=== PATIENT | female | born 1995 | race Caucasian/White ===

== ENCOUNTER 2017-11-01 14:39 | Emergency (ER) | payer MEDICAID, SELFPAY ==
[2017-11-01 15:00] VITALS: BP 130/81; PULSE 103; RESP 22; TEMP 36.8; O2SAT 97; BMI 45.8
--- NOTE | 2017-11-01 15:07 | HMH.EDUTC ---
[facility] [place] Impression: test negative Disposition: Home, Self-Care Condition on Discharge: Good Additional Instructions: Follow up with family doctor Return if needed Keep record of menstrual cycle to help define period of time that you may or may not become Referrals: Sandeep Amador MD [Primary Care Provider] - Time of Disposition: 16:49 Medical Decision Making - Medical Records Medical records reviewed: Yes: I reviewed the patient's medical records. Vital Signs: 11/01/17 15:00 Temperature 98.2 F Temperature Source Temporal Artery Scan Pulse Rate [Radial] 103 H Respiratory Rate 22 Blood Pressure [Right Arm] 130/81 Blood Pressure Mean [Right Arm] 97 Blood Pressure Source [Right Arm] Automatic Cuff Blood Pressure Position [Right Arm] Sitting 02 Sat by Pulse Oximetry 97 Oxygen Delivery Method Room Air - Lab Data Lab Results 11/01/17 15:44: Serum HCG, Qual Negative - Anderson Inquiry Pt receiving controlled substance: No Anderson was queried for this patient: No - Reevaluation(s) Time: 15:59 (awaiting lab work will monitor) Time: 16:47 (Lab results back Patient educated and advised of finding) [facility] [place] - General Stated complaint: test Mode of Arrival: Ambulatory Source of Information: Patient Limitations: No Limitations Description of Symptoms (Recalled from Triage Doc. by RN): PT WANTS A TEST HEENT Symptoms (Recalled from RN notes): No Resp Symptoms (Recalled from RN notes): No Skin Symptoms (Recalled from RN notes): No MS Symptoms (Recalled from RN notes): No Functional Status (Recalled from RN notes): NA - History of Present Illness Provider Complaint: Patient state that she has not been using control and she thinks she may be State that her last period was the first week in Dec and she has been having pregnacy like symptoms such as cravings, tenderness in breast and nausea - Related Data Allergies Allergy/AdvReac Type Severity Reaction Status Date / Time azithromycin Allergy Unknown - Unverified 09/30/17 15:00 - Worker's Comp Is this a Worker's Comp case?: No [facility] History I have reviewed the patient's past medical history: Yes Medical History: Denies:: Cancer, Diabetes Mellitus Type 1, Diabetes Mellitus Type 2, MRSA Amputation: No Fractures: No - *Social History Alcohol Intake: never - Psychiatric History Expresses thoughts of harming self/others: None Suicide Plan Description: No Plan ROS Obtained: Yes All systems reviewed & no additional complaints Physical Exam - General General appearance: alert, in no apparent distress - Respiratory Respiratory exam: Present: normal lung sounds bilaterally. Absent: respiratory distress - Cardiovascular Cardiovascular exam: Present: normal rhythm, tachycardia. Absent: JVD - Neurological Exam Neurological exam: Present: alert, oriented X3
--- NOTE | 2017-11-01 15:12 | ED_ITS ---
[facility] – [place] Clinical Impression: test negative Disposition: Home, Self-Care Condition on Discharge: Good Additional Instructions: Follow up with family doctor Return if needed Keep record of menstrual cycle to help define period of time that you may or may not become Referrals: Sandeep Amador MD [Primary Care Provider] - Time of Disposition: 16:49 Medical Decision Making - Medical Records Medical records reviewed: Yes: I reviewed the patient's medical records. Vital Signs: 11/01/17 15:00 Temperature 98.2 F Temperature Source Temporal Artery Scan Pulse Rate [Radial] 103 H Respiratory Rate 22 Blood Pressure [Right Arm] 130/81 Blood Pressure Mean [Right Arm] 97 Blood Pressure Source [Right Arm] Automatic Cuff Blood Pressure Position [Right Arm] Sitting 02 Sat by Pulse Oximetry 97 Oxygen Delivery Method Room Air - Lab Data Lab Results 11/01/17 15:44: Serum HCG, Qual Negative - Anderson Inquiry Pt receiving controlled substance: No Anderson was queried for this patient: No - Reevaluation(s) Time: 15:59 (awaiting lab work will monitor) Time: 16:47 (Lab results back Patient educated and advised of finding) [facility] [place] HPI - General Stated complaint: test Mode of Arrival: Ambulatory Source of Information: Patient Limitations: No Limitations Description of Symptoms (Recalled from Triage Doc. by RN): PT WANTS A TEST HEENT Symptoms (Recalled from RN notes): No Resp Symptoms (Recalled from RN notes): No Skin Symptoms (Recalled from RN notes): No MS Symptoms (Recalled from RN notes): No Functional Status (Recalled from RN notes): NA - History of Present Illness Provider Complaint: Patient state that she has not been using control and she thinks she may be State that her last period was the first week in Dec and she has been having pregnacy like symptoms such as cravings, tenderness in breast and nausea - Related Data Allergies Allergy/AdvReac Type Severity Reaction Status Date / Time azithromycin Allergy Unknown - Unverified 09/30/17 15:00 - Worker's Comp Is this a Worker's Comp case?: No [facility] History I have reviewed the patient's past medical history: Yes Medical History: Denies:: Cancer, Diabetes Mellitus Type 1, Diabetes Mellitus Type 2, MRSA Amputation: No Fractures: No - *Social History Alcohol Intake: never - Psychiatric History Expresses thoughts of harming self/others: None Suicide Plan Description: No Plan ROS Obtained: Yes All systems reviewed & no additional complaints Physical Exam - General General appearance: alert, in no apparent distress - Respiratory Respiratory exam: Present: normal lung sounds bilaterally. Absent: respiratory distress - Cardiovascular Cardiovascular exam: Present: normal rhythm, tachycardia. Absent: JVD - Neurological Exam Neurological exam: Present: alert, oriented X3
[2017-11-01 16:35] LABS: HCG Qualitative, Serum Negative (Negative)
[2017-11-01 16:49] VITALS: BP 108/60; PULSE 65; RESP 14; TEMP 36.7; O2SAT 98
== END 2017-11-01 16:50 | disposition home or self-care (01) ==
PROVIDERS: Emergency Provider Nurse Practitioner; PCP Family Medicine
DX: N91.2 Amenorrhea, unspecified (principal); Z32.02 Encounter for pregnancy test, result negative
CPT/HCPCS: 36415; 84703; 99202

== ENCOUNTER → 2018-04-21 11:21 | Outpatient (CLI) | payer MEDICAID, SELFPAY ==
[2018-04-21 12:55] LABS: Free Thyroxine Index 2.4 ug/dL (5.93-13.13); T4 (Thyroxine) 7.4 ug/dl (4.7-13.3); Thyroid Stimulating Hormone 2.27 uIU/ml (0.358-3.740); Triiodothryronine (T3) Uptake 32 % (31-39)
== END ==
PROVIDERS: Visit Provider Nurse Practitioner Obstetrics & Gynecology
DX: R53.82 Chronic fatigue, unspecified (principal); N92.6 Irregular menstruation, unspecified
CPT/HCPCS: 36415; 84436; 84443; 84479

== ENCOUNTER 2020-05-26 13:49 | Emergency (ER) | payer MEDICAID, SELFPAY ==
--- NOTE | 2020-05-26 14:21 | HMH.EDUTC ---
[facility] [place]: Nausea Disposition: Home, Self-Care Condition on Discharge: Good Instructions: DI for Nausea -- Adult Additional Instructions: You need to follow up with a primary care physician. We will give you a list of providers that are taking new patients. Take the zofran as directed for nausea. Avoid foods and activities that cause your nausea until you have a more clear etiology of what's causing it. GO TO THE ER FOR ANY WORSENING SYMPTOMS OR CONCERNS Prescriptions: Ondansetron [Zofran 4mg ODT] 4 mg PO Q8HP PRN #20 tab PRN Reason: Nausea Transmission Status: Received by [employer] #[id number] Referrals: PCP,No [Primary Care Provider] - Forms: Work/School Release Time of Disposition: 15:54 Medical Decision Making - Medical Records Medical records reviewed: No: I reviewed the patient's medical records. - Anderson Inquiry Pt receiving controlled substance: No Vital Signs: 05/26/20 14:35 05/26/20 15:57 Temperature 98.0 F 98.0 F Temperature Source Oral Pulse Rate 90 Pulse Rate [Left Brachial] 90 Respiratory Rate 20 20 Blood Pressure 144/98 H Blood Pressure [Left Arm] 144/98 H Blood Pressure Mean [Left Arm] 113 Blood Pressure Source [Left Arm] Automatic Cuff Blood Pressure Position [Left Arm] Sitting 02 Sat by Pulse Oximetry 98 Oxygen Delivery Method Room Air - Lab Data Lab results reviewed: Yes: I reviewed the patient's lab results. Lab Results 05/26/20 15:05: WBC 7.6, RBC 4.81, Hgb 15.2, Hct 44.1, MCV 91.6, MCH 31.6 H, MCHC 34.5, RDW 12.7, Plt Count 254, MPV 8.6, Neut % (Auto) 65.4, Lymph % (Auto) 26.4, Faulk % (Auto) 4.0, Eos % (Auto) 3.9, Baso % (Auto) 0.3, Neut # (Auto) 5.0, Lymph # (Auto) 2.0, Faulk # (Auto) 0.3, Eos # (Auto) 0.3, Baso # (Auto) 0.0, ESR 13 05/26/20 15:05: Sodium 140, Potassium 4.5, Chloride 105, Carbon Dioxide 27, Anion Gap 12.5, BUN 8, Creatinine 0.80, Estimated Creat Clear 160, Estimated GFR 87, Est GFR ( Amer) 105, Glucose 96, Calcium 9.6, Total Bilirubin 0.5, AST 25, ALT 37, Alkaline Phosphatase 46, Total Protein 7.5, Albumin 4.4, Globulin 3.1, Albumin/Globulin Ratio 1.4, TSH 0.79 05/26/20 15:05: Free T4 1.05 Result diagrams: 05/26/20 15:05 05/26/20 15:05 [facility] [place] General Stated complaint: symptoms of tyroid Time Seen by Provider: 05/26/20 14:21 - History of Present Illness Provider Complaint: She states that she has been feeling fatigued more than normal for the past 2 weeks or so. In the past she had hyperactive thyroid that made her feel this same way. This occured about 10 years ago. Since then she states that her thyroid regulated its self back out so she no longer takes thyroid medication. - Related Data Previous Rx's Medication Instructions Recorded Ondansetron [Zofran 4mg ODT] 4 mg PO Q8HP PRN #20 tab 05/26/20 Allergies Allergy/AdvReac Type Severity Reaction Status Date / Time azithromycin Allergy Unknown - Verified 06/04/18 10:30 [facility] History - Hepatitis A Screen Attestation statement:: This patient has been screened for Hepatitis A risk factors. I have reviewed the patient's past medical history: Yes Medical History: Reports:: Depression Denies:: Cancer, Diabetes Mellitus Type 1, Diabetes Mellitus Type 2, MRSA Other Medical History: Reports: Thyroid Disease Other Surgeries: Yes: No Previous Surgery Amputation: No Fractures: No - Social History Smoking Status: Unknown if ever smoked Alcohol Intake: never Substance Use Type: denies use - Psychiatric History Pschychiatric History:: Reports:: Depression Family Hx:: Asthma, Diabetes, Coronary Artery Disease, Stroke, Cancer Comment: Mother overdose,diabetes. Father-Alive. Siblings-Alive asthma ROS Obtained: Yes All systems reviewed & no additional complaints - Constitutional Constitutional: Denies chills, Denies fever(s) - Eyes Eyes: Denies eye discharge - ENT Ears, Nose, Mouth, and Thr
[2020-05-26 14:35] VITALS: BP 144/98; PULSE 90; RESP 20; TEMP 36.7; O2SAT 98; BMI 36.0
[2020-05-26 15:11] LABS: Basophils % 0.3 % (0.1-2.0); Eosinophils # 0.3 K/mm3 (0.0-0.4); Eosinophils % 3.9 % (0.1-12.0); Hematocrit 44.1 % (37.0-47.0); Hemoglobin 15.2 g/dL (12.2-16.2); Lymphocytes % 26.4 % (10-50); Mean Corpuscular HGB Conc 34.5 g/dL (31.8-35.4); Mean Corpuscular Hemoglobin 31.6 pg (27.0-31.2); Mean Corpuscular Volume 91.6 fl (81-99); Mean Platelet Volume 8.6 fl (7.4-10.4); Monocytes # 0.3 K/mm3 (0.1-1.0); Neutrophils % 65.4 % (37.0-80.0); Platelet Count 254 K/mm3 (142-424); Red Blood Count 4.81 M/mm3 (4.20-5.40); Red Cell Distribution Width 12.7 % (11.5-17.5); White Blood Count 7.6 K/mm3 (4.8-10.8)
[2020-05-26 15:17] LABS: Chloride 105 mmol/L (98-107); Sodium 140 mmol/L (136-145)
[2020-05-26 15:18] LABS: Potassium 4.5 mmoL/L (3.5-5.1)
[2020-05-26 15:20] LABS: Alanine Aminotransferase 37 U/L (12-78); Albumin Level 4.4 g/dl (3.5-5.0); Albumin/Globulin Ratio 1.4 (1.1-1.8); Alkaline Phosphatase 46 U/L (38-126); Anion Gap 12.5 mEq/L (5-15); Aspartate Amino Transferase 25 U/L (14-36); Bilirubin,Total 0.5 mg/dl (0.2-1.3); Blood Urea Nitrogen 8 mg/dl (7-17); Carbon Dioxide 27 mmol/L (22.0-30.0); Creatinine Clearance Estimated 160 mL/min (50-200); Estimated Glomerular Filt Rate 87 ml/min (>60); GFR (African American) 105 ML/MIN (>60); Globulin 3.1 g/dL (1.3-3.2); Total Protein,Serum 7.5 g/dl (6.3-8.2)
[2020-05-26 15:21] LABS: Calcium 9.6 mg/dl (8.4-10.2); Glucose 96 mg/dl (74-100)
[2020-05-26 15:33] LABS: Erythrocyte Sedimentation Rate 13 mm/hr (0-20)
[2020-05-26 15:42] LABS: Free T4 (Free Thyroxine) 1.05 ng/dl (0.78-2.19)
[2020-05-26 15:51] LABS: Thyroid Stimulating Hormone 0.79 uIU/mL (0.465-4.68)
[2020-05-26 15:57] VITALS: BP 144/98; PULSE 90; RESP 20; TEMP 36.7; O2SAT 98
== END 2020-05-26 16:05 | disposition home or self-care (01) ==
PROVIDERS: Emergency Provider Nurse Practitioner Family
DX: R11.0 Nausea (principal); R53.83 Other fatigue
CPT/HCPCS: 80053; 84439; 84443; 85025; 85651; 99201

== ENCOUNTER → 2020-06-12 09:50 | Outpatient (CLI) | payer MEDICAID, SELFPAY ==
--- NOTE | 2020-06-12 10:03 | US_ITS ---
PROCEDURE: US ABDOMEN LIMITED CLINICAL INDICATION: RUQ PAIN COMPARISON: No exams were available for comparison FINDINGS: PANCREAS: Unremarkable. No obvious mass or abnormal fluid collection. No ductal dilatation LIVER: No focal liver lesions demonstrated. Homogeneous echogenicity. No intrahepatic biliary ductal dilatation evident. There is appropriate direction of blood flow within a non dilated portal vein RIGHT KIDNEY: Unremarkable. Normal size and echogenicity. No hydronephrosis GALLBLADDER: No gallstones, gallbladder wall thickening, pericholecystic fluid, or biliary dilatation. IMPRESSION: Unremarkable limited abdominal ultrasound as detailed above disc Dictated by: Jose Keen MD 06/12/2020 12:09 Jose Keen MD in [place] 06/12/2020 12:09
== END ==
PROVIDERS: PCP Family Medicine; Visit Provider Family Medicine
DX: R10.11 Right upper quadrant pain (principal); R11.0 Nausea
CPT/HCPCS: 76705

== ENCOUNTER 2020-12-01 16:00 | Outpatient (RCR) | payer MEDICAID, SELFPAY | END 2020-12-01 16:05 | disposition home or self-care (01) | LOC: PT 16:00 | PROVIDERS: Visit Provider Family Medicine | DX: S39.012A Strain of muscle, fascia and tendon of lower back, initial encounter (principal) | CPT/HCPCS: 97010; 97014; 97033; 97110; 97140; 97163; G0283 ==

== ENCOUNTER → 2022-09-23 13:59 | Outpatient (CLI) | payer MEDICAID, SELFPAY ==
--- NOTE | 2022-09-23 14:04 | CT_ITS ---
FINAL REPORT TECHNIQUE: Axial imaging of the orbits was obtained with without contrast. Reformatted images were also obtained reviewed. This study was performed with techniques to keep radiation doses as low as reasonably achievable (ALARA). Individualized dose reduction techniques using automated exposure control or adjustment of mA and/or kV according to the patient's size were employed. CLINICAL HISTORY: vision loss, papilledema FINDINGS: There is mild mucosal thickening of the right maxillary sinuses. Visualized sinuses are otherwise clear. The globes are intact. No orbital mass is seen. There is no abnormal contrast enhancement. The optic nerves are intact. There is no acute osseous abnormality. There is no mass or inflammatory process seen. IMPRESSION: Unremarkable exam. Reviewed, Interpreted and Dictated by Neil Hastings III, MD Transcribed by Raya Wiseman Authenticated and [facility]
[2022-09-23 14:32] LABS: Basophils # 0.1 K/mm3 (0-0.2); Basophils % 0.7 % (0.1-2.0); Eosinophils # 0.3 K/mm3 (0.0-0.4); Hematocrit 43.2 % (37.0-47.0); Hemoglobin 14.4 g/dL (12.2-16.2); Lymphocytes # 2.4 K/mm3 (0.7-4.5); Mean Corpuscular HGB Conc 33.3 g/dL (31.8-35.4); Mean Corpuscular Hemoglobin 29.6 pg (27.0-31.2); Mean Platelet Volume 7.9 fl (7.4-10.4); Monocytes # 0.3 K/mm3 (0.1-1.0); Monocytes % 3.8 % (1.7-9.3); Neutrophils # 5.9 K/mm3 (1.8-7.8); Neutrophils % 65.5 % (37.0-80.0); Platelet Count 279 K/mm3 (142-424); Red Blood Count 4.86 M/mm3 (4.20-5.40); Red Cell Distribution Width 13.8 % (11.5-17.5); White Blood Count 8.9 K/mm3 (4.8-10.8)
[2022-09-23 14:37] LABS: Chloride 106 mmol/L (98-107); Potassium 3.7 mmoL/L (3.5-5.1); Sodium 140 mmol/L (136-145)
[2022-09-23 14:40] LABS: Alanine Aminotransferase 26 U/L (12-78); Albumin Level 4.5 g/dl (3.5-5.0); Albumin/Globulin Ratio 1.5 (1.1-1.8); Alkaline Phosphatase 72 U/L (38-126); Anion Gap 12.7 mEq/L (5-15); Aspartate Amino Transferase 28 U/L (14-36); Bilirubin,Total 0.4 mg/dl (0.2-1.3); Blood Urea Nitrogen 19 mg/dl (7-17); Carbon Dioxide 25 mmol/L (22.0-30.0); Estimated Glomerular Filt Rate 53 ml/min (>60); GFR (African American) 65 ML/MIN (>60); Globulin 3.1 g/dL (1.3-3.2); Glucose 92 mg/dl (74-100); Total Protein,Serum 7.6 g/dl (6.3-8.2)
[2022-09-23 14:52] LABS: C-Reactive Protein 15.5 mg/L (0-4)
[2022-09-23 15:12] LABS: Thyroid Stimulating Hormone 2.23 uIU/mL (0.465-4.68)
[2022-09-23 15:23] LABS: Erythrocyte Sedimentation Rate 17 mm/hr (0-20)
[2022-09-23 16:32] LABS: Vitamin B12 639 pg/mL (239-931)
[2022-09-23 16:40] LABS: Folate 8.48 ng/mL
[2022-09-25 12:38] LABS: Rapid Plasma Reagin Ab Titer Non Reactive (NonRea<1:1)
[2022-10-05 23:23] LABS: Antinuclear Antibodies (ANA) Positive
== END ==
PROVIDERS: PCP Family Medicine; Visit Provider Nurse Practitioner Family
DX: H53.462 Homonymous bilateral field defects, left side (principal); H47.10 Unspecified papilledema; G93.2 Benign intracranial hypertension; R06.83 Snoring; R06.89 Other abnormalities of breathing; Z68.42 Body mass index [BMI] 45.0-49.9, adult
CPT/HCPCS: 36415; 70482; 80053; 82607; 82746; 84443; 85025; 85651; 86038; 86140; 86592; Q9967

== ENCOUNTER → 2022-10-07 08:39 | Outpatient (CLI) | payer MEDICAID, SELFPAY ==
[2022-10-07 10:23] LABS: Chloride 103 mmol/L (98-107); Potassium 4.6 mmoL/L (3.5-5.1); Sodium 139 mmol/L (136-145)
[2022-10-07 10:26] LABS: Anion Gap 12.6 mEq/L (5-15); Blood Urea Nitrogen 16 mg/dl (7-17); Carbon Dioxide 28 mmol/L (22.0-30.0); Estimated Glomerular Filt Rate 85 ml/min (>60); GFR (African American) 103 ML/MIN (>60); Glucose 89 mg/dl (74-100)
== END ==
PROVIDERS: PCP Family Medicine; Visit Provider Nurse Practitioner Family
DX: N28.9 Disorder of kidney and ureter, unspecified (principal)
CPT/HCPCS: 36415; 80048

== ENCOUNTER → 2022-10-09 14:15 | Outpatient (CLI) | payer MEDICAID, SELFPAY | PROVIDERS: PCP Family Medicine; Visit Provider Nurse Practitioner Family | DX: R06.81 Apnea, not elsewhere classified (principal); R06.83 Snoring; R06.89 Other abnormalities of breathing; G93.2 Benign intracranial hypertension | CPT/HCPCS: 95806 ==

== ENCOUNTER → 2022-10-31 13:56 | Outpatient (CLI) | payer MEDICAID, SELFPAY ==
[2022-11-04 18:08] LABS: Anti-Centromere B Antibodies <0.2 AI (0.0-0.9); Anti-DNA (DS) Ab Qn 2 IU/mL (0-9); Anti-Jo-1 <0.2 AI (0.0-0.9); Anti-Smith Antibody <0.2 AI (0.0-0.9); Antichromatin Antibodies 3.4 AI (0.0-0.9); Antiscleroderma-70 Antibodies <0.2 AI (0.0-0.9); RNP Antibodies <0.2 AI (0.0-0.9); Sjogren's Anti-SS-A 0.6 AI (0.0-0.9); Sjogren's Anti-SS-B <0.2 AI (0.0-0.9)
[2022-11-07 02:49] LABS: Antinuclear Antibodies, IFA POSITIVE
== END ==
PROVIDERS: PCP Family Medicine; Visit Provider Nurse Practitioner Family
DX: H47.10 Unspecified papilledema (principal); R76.8 Other specified abnormal immunological findings in serum
CPT/HCPCS: 36415; 86038; 86225; 86235

== ENCOUNTER → 2022-11-28 12:17 | Outpatient (CLI) | payer MEDICAID, SELFPAY ==
--- NOTE | 2022-11-28 | ECG_ITS ---
APPROVED REPORT Exam: Resting ECG HR:85 bpm ECG Measurements Heart Rate [address] 151 P 46 QRSd 81 QRS 59 QT 341 T 25 QTc 383 Conclusion SINUS RHYTHM LOW QRS VOLTAGE IN PRECORDIAL LEADS [QRS DEFLECTION < 1.0 mV IN CHEST LEADS] BORDERLINE ECG UNCONFIRMED REPORT Electronically signed by : Sandeep Dow MD 11/29/2022 08:57:58
--- NOTE | 2022-11-28 12:44 | XR_ITS ---
FINAL REPORT CLINICAL HISTORY: OBESITY COMPARISON: none FINDINGS: PA and lateral views of the chest were obtained. There is a tube coursing along the right neck and right upper chest favored to be [employer] shunt tubing. There is no prior exam for comparison. The cardiac and mediastinal silhouettes are within normal limits. The lungs are clear. There is no pleural effusion or pneumothorax. No acute osseous abnormality is identified. IMPRESSION: No radiographic evidence of acute cardiac or pulmonary disease. Reviewed, Interpreted and Dictated by Karol Jackson MD Transcribed by Nerissa Alanis Authenticated and [facility]
[2022-11-28 12:50] LABS: Basophils # 0.1 K/mm3 (0-0.2); Basophils % 0.9 % (0.1-2.0); Eosinophils # 0.2 K/mm3 (0.0-0.4); Eosinophils % 2.2 % (0.1-12.0); Hematocrit 41.5 % (37.0-47.0); Lymphocytes # 2.2 K/mm3 (0.7-4.5); Lymphocytes % 30.3 % (10-50); Mean Corpuscular HGB Conc 33.8 g/dL (31.8-35.4); Mean Corpuscular Hemoglobin 30.1 pg (27.0-31.2); Mean Corpuscular Volume 89.1 fl (81-99); Mean Platelet Volume 8.3 fl (7.4-10.4); Monocytes # 0.3 K/mm3 (0.1-1.0); Monocytes % 4.6 % (1.7-9.3); Neutrophils # 4.5 K/mm3 (1.8-7.8); Neutrophils % 61.9 % (37.0-80.0); Platelet Count 260 K/mm3 (142-424); Red Blood Count 4.66 M/mm3 (4.20-5.40); Red Cell Distribution Width 13.8 % (11.5-17.5); White Blood Count 7.2 K/mm3 (4.8-10.8)
[2022-11-28 13:13] LABS: Chloride 106 mmol/L (98-107); Potassium 4.5 mmoL/L (3.5-5.1); Sodium 140 mmol/L (136-145)
[2022-11-28 13:16] LABS: Alanine Aminotransferase 29 U/L (12-78); Albumin Level 4.6 g/dl (3.5-5.0); Albumin/Globulin Ratio 1.8 (1.1-1.8); Alkaline Phosphatase 58 U/L (38-126); Anion Gap 11.5 mEq/L (5-15); Aspartate Amino Transferase 28 U/L (14-36); Bilirubin,Total 0.7 mg/dl (0.2-1.3); Blood Urea Nitrogen 15 mg/dl (7-17); Carbon Dioxide 27 mmol/L (22.0-30.0); Chol/HDL Ratio 5.9 (1-3.5); Cholesterol 159 mg/dl (140-200); Estimated Glomerular Filt Rate 75 ml/min (>60); GFR (African American) 90 ML/MIN (>60); Globulin 2.6 g/dL (1.3-3.2); Glucose 83 mg/dl (74-100); HDL Cholesterol 27 mg/dl (40-60); Iron 47 ug/dL (37-170); Total Protein,Serum 7.2 g/dl (6.3-8.2); Triglycerides 118 mg/dl (30-150); VLDL Cholesterol 24 mg/dL (0-40)
[2022-11-28 13:26] LABS: Total Iron Binding Capacity 320 ug/dL (265-497)
[2022-11-28 13:27] LABS: Direct LDL Cholesterol 101.77 mg/dL (100-129)
[2022-11-28 13:47] LABS: Thyroid Stimulating Hormone 1.03 uIU/mL (0.465-4.68)
[2022-11-28 14:12] LABS: Intact Parathyroid Hormone 94.9 pg/mL (7.5-53.5)
[2022-11-28 15:20] LABS: Folate > 20.00 ng/mL
[2022-11-28 16:49] LABS: 25-OH Vitamin D, Total 18.6 ng/mL (30-100)
[2022-11-30 18:45] LABS: Vitamin B1 88.5 nmol/L (66.5-200.0)
[2022-12-04 18:09] LABS: Vitamin A 33.8 ug/dL (18.9-57.3)
[2022-12-10 08:31] LABS: Vitamin E Gamma Tocopherol 1.1 mg/L (0.7-4.9)
[2022-12-13 14:29] LABS: Methylmalonic Acid 290 nmol/L (0-378)
== END ==
PROVIDERS: PCP Family Medicine; Visit Provider Nurse Practitioner Family
DX: E66.9 Obesity, unspecified (principal); Z68.42 Body mass index [BMI] 45.0-49.9, adult; Z01.810 Encounter for preprocedural cardiovascular examination; I49.9 Cardiac arrhythmia, unspecified; Z82.49 Family history of ischemic heart disease and other diseases of the circulatory system; D50.9 Iron deficiency anemia, unspecified; E55.9 Vitamin D deficiency, unspecified
CPT/HCPCS: 36415; 71046; 80053; 80061; 82131; 82306; 82728; 82746; 83540; 83550; 83970; 84425; 84443; 84446; 84590; 85025; 93005

== ENCOUNTER → 2022-12-02 16:39 | Outpatient (CLI) | payer MEDICAID, SELFPAY | PROVIDERS: PCP Family Medicine; Visit Provider Internal Medicine | DX: I49.9 Cardiac arrhythmia, unspecified (principal) | CPT/HCPCS: 93225 ==

== ENCOUNTER → 2022-12-05 11:23 | Outpatient (CLI) | payer MEDICAID, SELFPAY ==
--- NOTE | 2022-12-05 11:25 | CA_ITS ---
APPROVED REPORT EXAM: Comprehensive 2D, Doppler, and color-flow Echocardiogram [place] Expert: Jen Franklin CRT Ht: 5 ft 4 in Wt: 288lbs BSA: 2.28 BP: 117/83 mmHg Indications: Shortness of Breath, CAD, Pre-Op gastric bypass 2D Dimensions LVOT 1.99 cm (M/F) 1.5-2.5 LA Volume 41.20 mL LA Volume Index 17.60 mL/m2 (M/F) 16-34 M-Mode Dimensions RVDd 2.94 cm (0.9-2.6) LA Diam 3.55 cm (1.9-4.0) LVDd 4.81 cm (3.5-5.7) Ao Diam 3.39 cm (2.0-3.7) LVDs 3.12 cm (3.5-5.7) IVSd 1.04 cm (0.6-1.1) PWd 0.68 cm (0.6-1.1) EF (Teich) 64.40% FS 35.10% EDV (Teich) 108.00 mL TAPSE 2.64 (<1.7) ESV (Teich) 38.50 mL LV Diastology E Decel Time 155.00 (160-240 msec) E/A Ratio 1.10 MED E' 7.30 (< 7 cm/sec) MED A' 7.30 cm/s E'/MED E' Ratio 9.16 (>14) LAT E' 12.10 (<10 cm/sec) LAT A' 8.40 cm/s E/LAT E' Ratio 5.53 (>14) Aortic Valve AO Peak GR. 6.70 mmHg Mitral Valve MV A Velocity 61.00 (40-130 cm/s) E/A Ratio 1.10 MV Decel. Time 155.00 (160-240 ms) Tricuspid Valve TR P. Velocity 244.00 cm/s RAP Estimate 10.00 mmHg RVSP 33.80 mmHg Left Ventricle Left atrium is normal size left ventricle is normal size, there is no concentric left ventricular hypertrophy, estimated ejection fraction 55% with no regional wall motion abnormality, diastolic parameters are within normal range. Right Ventricle Right atrium and right ventricle are normal size and contractility. Aortic Valve Aortic valve is grossly normal there is no aortic stenosis aortic insufficiency. Mitral Valve Mitral valve is grossly normal, there is trace mitral regurgitation. Tricuspid Valve Tricuspid valve grossly normal, there is trace tricuspid regurgitation, tricuspid regurgitation jet plus is inadequate for calculation of the right ventricular systolic pressure. Pulmonic Valve Pulmonic valve is poorly visualized. Great Vessels Aortic root normal size. Inferior vena cava is normal size with normal inspiratory collapse. Pericardium No significant pericardial effusion noted. Conclusion 1. Normal left ventricular size preserved left ventricular systolic function, estimated ejection fraction 55% with no regional wall motion abnormality, diastolic parameters are within normal range. 2. Trace mitral and tricuspid regurgitation. 3. No significant pericardial effusion noted. 4. Inferior vena cava is normal size with normal inspiratory collapse. Electronically signed by : Broderick Evans MD 12/06/2022 15:05:24
== END ==
PROVIDERS: PCP Family Medicine; Visit Provider Physician Assistant
DX: Z01.810 Encounter for preprocedural cardiovascular examination (principal); I49.9 Cardiac arrhythmia, unspecified; Z82.49 Family history of ischemic heart disease and other diseases of the circulatory system
CPT/HCPCS: 93306

== ENCOUNTER → 2022-12-21 09:23 | Outpatient (CLI) | payer MEDICAID, SELFPAY ==
[2022-12-21 10:40] LABS: Hemoglobin A1C 4.5 % (4.0-6.0)
== END ==
PROVIDERS: PCP Family Medicine; Visit Provider Nurse Practitioner Family
DX: E66.9 Obesity, unspecified (principal)
CPT/HCPCS: 83036

== ENCOUNTER → 2022-12-25 19:48 | Outpatient (CLI) | payer MEDICAID, SELFPAY | PROVIDERS: PCP Family Medicine; Visit Provider Specialist | DX: G47.30 Sleep apnea, unspecified (principal); R06.83 Snoring | CPT/HCPCS: 95810 ==

== ENCOUNTER → 2022-12-26 10:40 | Outpatient (CLI) | payer MEDICAID, SELFPAY ==
--- NOTE | 2022-12-26 11:05 | PC.NURSE ---
Pt completed Pre and Post Spirometry without incident. Albuterol 0.083% given via HHN, per protocol, Pt tolerated tx well.
== END ==
PROVIDERS: PCP Family Medicine; Visit Provider Family Medicine
DX: Z01.818 Encounter for other preprocedural examination (principal)
CPT/HCPCS: 94060